=== PATIENT | female | born 1985 | race Caucasian/White ===

== ENCOUNTER → 2022-10-03 08:52 | Outpatient (CLI) | payer OTHER, MEDICAID, SELFPAY ==
--- NOTE | ~2022-10-03 | XR_ITS ---
Clinical Indication: Cough PA and lateral views of the chest: Comparison: 09/21/2022 Findings: The lungs are clear, without evidence of focal consolidation or pleural effusion. Cardiome diastinal silhouette is within normal limits. Bones and soft tissues are unremarkable. Impression: Normal chest. Reviewed, dictated and finalized at location . Impression: Normal chest.
== END ==
PROVIDERS: PCP Nurse Practitioner Family; Visit Provider Nurse Practitioner Family
DX: R05.1 Acute cough (principal)
CPT/HCPCS: 71046

== ENCOUNTER 2023-02-22 08:01 | Emergency (ER) | payer OTHER, SELFPAY ==
--- NOTE | ~2023-02-22 | XR_ITS ---
EXAMINATION: XR chest 2V DATE: 02/22/2023 08:34 INDICATION: Chest congestion TECHNIQUE: PA and lateral views of the chest are obtained. COMPARISON: 10/03/2022 FINDINGS: The lungs are free of acute opacities. No pleural effusion or pneumothorax. The cardiomedia stinal silhouette is normal. There is mild thoracic spondylosis. IMPRESSION: 1. No acute cardiopulmonary abnormality. Reviewed, dictated and finalized at location F. CARRIER
--- NOTE | 2023-02-22 08:13 | ED.URI ---
HPI - URI/Sore Throat General Chief Complaint: Upper Respiratory Infection Stated Complaint: sinus/chest congestion Time Seen by Provider: 02/22/23 08:15 Source: patient Mode of arrival: ambulatory Limitations: no limitations History of Present Illness HPI Narrative: 37-year-old female presented for complaint of cough, chest congestion, wheezing, dizziness, sinus congestion over the past 3 weeks. She states at the onset she had COVID. After she completed Medrol Dosepak she states she felt better for couple of days but symptoms returned. She has been taking antihistamines and using albuterol inhaler more frequently. Denies shortness breath, chest pain, palpitations, nausea vomiting, diarrhea, fevers or chills. (States she received albuterol inhaler 12/2022 for allergy induced asthma). Related Data Home Medications Medication Instructions Recorded Confirmed acyclovir 400 mg tablet 400 mg PO DAILY 02/22/23 02/22/23 albuterol sulfate 90 mcg/actuation 2 puff inhalation Q6-8H PRN sob 02/22/23 02/22/23 aerosol inhaler ergocalciferol (vitamin D2) 1,250 1,250 mcg PO DAILY 02/22/23 02/22/23 mcg (50,000 unit) capsule fexofenadine 60 mg tablet 60 mg PO DAILY 02/22/23 02/22/23 fluoxetine 20 mg capsule 20 mg PO DAILY 02/22/23 02/22/23 omeprazole 20 mg tablet,delayed 20 mg PO DAILY 02/22/23 02/22/23 release phentermine 37.5 mg tablet 37.5 mg PO DAILY 02/22/23 02/22/23 Allergies Allergy/AdvReac Type Severity Reaction Status Date / Time lisinopril Allergy Intermediate Other Verified 02/22/23 08:23 Review of Systems Review of Systems: CONSTITUTIONAL: Denies body aches, fever, chills, or sweats. EYES: Denies visual changes, redness, or discharge. ENT: Reports rhinorrhea, congestion, denies sore throat, or otalgia. CARDIOVASCULAR: Denies chest pain, palpitations, or edema. RESPIRATORY: Reports cough, wheezing. GASTROINTESTINAL: Denies abdominal pain, nausea, vomiting, or diarrhea. GENITOURINARY: Denies dysuria or hematuria. SKIN: Denies rash, itching, or wounds. MUSCULOSKELETAL: Denies back pain, joint pain, or myalgia. NEUROLOGIC: Reports headache, Denies numbness, tingling, or weakness. All systems reviewed & are unremarkable except as noted in HPI and below PMFSH Past Medical History Medical History (Updated 02/22/23 @ 09:01 by Fabby Rod APRN) GERD (gastroesophageal reflux disease) High cholesterol Surgical History Surgical History (Updated 02/22/23 @ 08:27 by Fabby Rod APRN) History of cholecystectomy Comments At time of signature, I have reviewed and agree with nursing past medical, surgical, social and family history unless otherwise noted. Please see nursing chart for further information. There is no relevant family history pertinent to the presenting complaint Exam Narrative: GENERAL: Well-appearing, in no acute distress. EYES: EOMI. No redness or drainage. Conjunctivae normal. ENT: Mucous membranes pink and moist. No rhinorrhea. TMs normal bilaterally. Throat normal. Uvula midline. NECK: Normal AROM. Supple. CHEST: No respiratory distress. Faint Wheezing to left [place] and right lower lobe HEART: Regular rate and rhythm. No murmur appreciated. ABDOMEN: Soft, nontender, nondistended, normal active bowel sounds. EXTREMITIES: Normal range of motion. No edema. SKIN: Warm, dry, no rash. Capillary refill normal. Normal skin turgor. NEURO: Alert and oriented x3. Gait steady. PSYCH: Normal affect. Course Course Emergency Course: Patient is aware of diagnosis, understands and agrees to treatment plan. Anticipatory guidance given. Patient agrees to follow-up as directed and is aware of reasons to seek care at the emergency department. Portions of this record may have been created with voice recognition software Level of Care: Express Care Visit Vital Signs Vital signs: Vital Signs Temperature 97.6 F 02/22/23 08:15 Pulse Rate 76 02/22/23 08:15 Respirator
[2023-02-22 08:15] VITALS: BP 141/89; PULSE 76; RESP 16; TEMP 36.4; O2SAT 98
--- NOTE | 2023-02-22 08:22 | ED.URI ---
HPI - URI/Sore Throat General Chief Complaint: Upper Respiratory Infection Stated Complaint: sinus/chest congestion Time Seen by Provider: 02/22/23 08:15 Related Data Home Medications Medication Instructions Recorded Confirmed acyclovir 400 mg tablet 400 mg PO DAILY 02/22/23 02/22/23 albuterol sulfate 90 mcg/actuation 2 puff inhalation Q6-8H PRN sob 02/22/23 02/22/23 aerosol inhaler ergocalciferol (vitamin D2) 1,250 1,250 mcg PO DAILY 02/22/23 02/22/23 mcg (50,000 unit) capsule fexofenadine 60 mg tablet 60 mg PO DAILY 02/22/23 02/22/23 fluoxetine 20 mg capsule 20 mg PO DAILY 02/22/23 02/22/23 omeprazole 20 mg tablet,delayed 20 mg PO DAILY 02/22/23 02/22/23 release phentermine 37.5 mg tablet 37.5 mg PO DAILY 02/22/23 02/22/23 Allergies Allergy/AdvReac Type Severity Reaction Status Date / Time lisinopril Allergy Intermediate Other Verified 02/22/23 08:23 [facility] Past Medical History Medical History (Updated 02/22/23 @ 09:01 by Fabby Rod APRN) GERD (gastroesophageal reflux disease) High cholesterol Surgical History Surgical History (Updated 02/22/23 @ 08:27 by Fabby Rod APRN) History of cholecystectomy Course Vital Signs Vital signs: Vital Signs Temperature 36.4 C 02/22/23 08:15 Pulse Rate 76 02/22/23 08:15 Respiratory Rate 16 02/22/23 08:15 Blood Pressure 141/89 H 02/22/23 08:15 Pulse Oximetry 98 02/22/23 08:15 Oxygen Delivery Room Air 02/22/23 08:15 Temperature 36.4 C 02/22/23 08:15 Pulse Rate 76 02/22/23 08:15 Respiratory Rate 16 02/22/23 08:15 Blood Pressure 141/89 H 02/22/23 08:15 Pulse Oximetry 98 02/22/23 08:15 Oxygen Delivery Room Air 02/22/23 08:15 Discharge Plan Discharge Clinical Impression: Upper respiratory infection Patient Disposition: Home, Self-Care Condition: Stable Instructions: Antibiotic Form, Upper Respiratory Infection (ED) Additional Instructions: Take medication as directed Recommend Flonase spray and Zyrtec (or Claritin/Jeaneth) over the counter Cough syrup may cause drowsiness; avoid driving or take it at night time. Tylenol 1000mg every 8 hours as needed for pain Symptomatic treatment includes: rest, fluids, and increase humidity of the air at home. Follow up with your primary care provider in 1 week Go to the ER for worsening symptoms or concerns Prescriptions: New benzonatate 200 mg capsule 200 mg PO TID PRN (Reason: cough) Qty: 20 0RF methylprednisolone [Medrol (Felipe)] 4 mg tablets,dose pack See Rx Instructions .ROUTE .COMPLEX Qty: 21 0RF Rx Instructions: orally per package directions amoxicillin-pot clavulanate 875-125 mg tablet 1 tablet PO Q12H 7 Days Qty: 14 0RF fluconazole 150 mg tablet 150 mg PO DAILY Qty: 2 0RF No Action fexofenadine [Jeaneth] 60 mg Tablet 60 mg PO DAILY phentermine 37.5 mg tablet 37.5 mg PO DAILY acyclovir 400 mg tablet 400 mg PO DAILY ergocalciferol (vitamin D2) 1,250 mcg (50,000 unit) capsule 1,250 mcg PO DAILY albuterol sulfate 90 mcg/actuation HFA aerosol inhaler 2 puff INHALATION Q6-8H PRN (Reason: sob) fluoxetine 20 mg capsule 20 mg PO DAILY omeprazole 20 mg Tablet,Delayed Release (Dr/Ec) 20 mg PO DAILY Follow-up/Referrals: Anthony,TYRONE Adame [Primary Care Provider] - Time of Disposition: 09:02
== END 2023-02-22 09:05 | disposition home or self-care (01) ==
PROVIDERS: Emergency Provider Nurse Practitioner Family; PCP Nurse Practitioner Family
DX: J06.9 Acute upper respiratory infection, unspecified (principal); K21.9 Gastro-esophageal reflux disease without esophagitis; E78.00 Pure hypercholesterolemia, unspecified
CPT/HCPCS: 71046; 99213; G0463

== ENCOUNTER 2024-06-19 08:16 | Emergency (ER) | payer OTHER, SELFPAY ==
--- NOTE | ~2024-06-19 | XR_ITS ---
XR chest 2V Ordering provider: LEONEL Doe History: 39 years Female with . cough x5 days, sob . Comparison: February 22, 2023 FINDINGS: MEDIASTINUM: The cardiac silhouette is not enlarged. LUNGS: No effusions or pneumothorax. Opacification the right lower lobe suggestive of early pneumonia . Follow-up advised. 5 mm opacity in the right upper lobe which may be a nodule or summation shadow. Follow-up in 3-6 months advised. OTHER: No free air under the diaphragm. IMPRESSION: Right basilar minimal opacification suggestive of early pneumonia. Follow-up advised. Possible nodule in the right upper lobe. Follow-up in 3-6 months advised Reviewed, dictated and finalized at location A. IMPRESSION: Right basilar minimal opacification suggestive of early pneumonia. Follow-up ad vised. Possible nodule in the right upper lobe. Follow-up in 3-6 months advised
[2024-06-19 08:23] VITALS: BP 151/92; PULSE 75; RESP 20; TEMP 36.1; O2SAT 98
[2024-06-19 08:28] VITALS: PULSE 75; RESP 20; O2SAT 98
--- NOTE | 2024-06-19 08:39 | ED_ITS ---
HPI - URI/Sore Throat General Chief Complaint: Upper Respiratory Infection Stated Complaint: Congestion Time Seen by Provider: 06/19/24 08:34 Source: patient and RN notes reviewed Mode of arrival: ambulatory Limitations: no limitations History of Present Illness HPI Narrative: Patient presents today with a 4 to five-day history of productive cough, chest congestion, occasional shortness of breath. She is also complaining of pain to her soft palate but no sore throat. Denies fever. She has tried Mucinex without much relief. She also has history of asthma for which she takes albuterol and Symbicort. She does report some short-term relief with albuterol use. Related Data Home Medications ?Medication ?Instructions ?Recorded ?Confirmed ?Last Taken ?Type albuterol sulfate 90 mcg/actuation 2 puff inhalation Q6-8H PRN sob 02/22/23 02/22/23 Unknown History aerosol inhaler fexofenadine 60 mg tablet 60 mg PO DAILY 02/22/23 02/22/23 Unknown History omeprazole 20 mg tablet,delayed 20 mg PO DAILY 02/22/23 02/22/23 Unknown History release budesonide-formoterol HFA 160 inhalation 06/19/24 Unknown History mcg-4.5 mcg/actuation aerosol inhaler (Breyna) buspirone 5 mg tablet mg 06/19/24 Unknown History hydrochlorothiazide 12.5 mg tablet mg 06/19/24 Unknown History Allergies Allergy/AdvReac Type Severity Reaction Status Date / Time lisinopril Allergy Intermediate Other Verified 06/19/24 08:23 Review of Systems Review of Systems: CONSTITUTIONAL: Denies body aches, fever, chills, or sweats. EYES: Denies visual changes, redness, or discharge. ENT: Denies rhinorrhea, sore throat, or otalgia.+ congestion, soft palate pain CARDIOVASCULAR: Denies chest pain, palpitations, or edema. RESPIRATORY: + cough, wheezing, shortness of breath GASTROINTESTINAL: Denies abdominal pain, nausea, vomiting, or diarrhea. GENITOURINARY: Denies dysuria or hematuria. SKIN: Denies rash, itching, or wounds. MUSCULOSKELETAL: Denies back pain, joint pain, or myalgia. NEUROLOGIC: Denies headache, numbness, tingling, or weakness. PSYCH: Denies depression or anxiety. [facility] Past Medical History Medical History (Updated 06/19/24 @ 09:13 by Linda Martinez, [facility], ) Asthma High cholesterol GERD (gastroesophageal reflux disease) Surgical History Surgical History History of cholecystectomy Comments At time of signature, I have reviewed and agree with nursing past medical, surgical, social and family history unless otherwise noted. Please see nursing chart for further information. There is no relevant family history pertinent to the presenting complaint Exam Narrative: GENERAL: Mildly ill-appearing, well-nourished, and in no acute distress. HEAD: Normocephalic, atraumatic. EYES: EOMI. No redness or drainage. Conjunctivae normal. ENT: Mucous membranes pink and moist. Nares clear. No rhinorrhea. TMs normal bilaterally. Throat normal. Uvula midline. Tiny papule right soft palate with surrounding erythema NECK: Normal AROM. Supple. No lymphadenopathy. CHEST: No respiratory distress. Slight crackle in the right lower lobe, slight expiratory wheeze in the left lower lobe. HEART: Regular rate and rhythm. No murmur appreciated. EXTREMITIES: Normal range of motion. No edema. SKIN: Warm, dry, no rash. Capillary refill normal. Normal skin turgor. NEURO: No focal deficits. Alert and oriented x3. Gait steady. PSYCH: Normal affect. No signs of depression or anxiety. Course Course Level of Care: Express Care Visit Vital Signs Vital signs: Vital Signs Temperature 96.9 F L 06/19/24 08:23 Pulse Rate 75 06/19/24 08:23 Respiratory Rate 20 06/19/24 08:23 Blood Pressure 151/92 H 06/19/24 08:23 Pulse Oximetry 98 06/19/24 08:23 Oxygen Delivery Room Air 06/19/24 08:23 Temperature 96.9 F L 06/19/24 08:23 Pulse Rate 75 06/19/24 08:28 Respiratory Rate 20 06/19/24 08:28 Blood Pressure 151/92 H 06/19/24 08:23 Pulse Oximetry 98 06/19/24 08:28 Oxygen Delivery Room Air 06/19/24 08:23 Reviewed MDM - URI/Sore Throat MDM Narrative Medical decision making narrative: X-ray shows right basilar pneumonia with possible nodule in the right upper lobe. Will treat pneumonia with Augmentin and azithromycin. Will refill albuterol inhaler. Will also treat asthma symptoms and shortness of breath with some prednisone. Patient is having trouble sleeping due to her excessive coughing so will also prescribe some Cheratussin for this. Anticipatory guidance given. ED precautions given. Patient has been instructed to follow-up with her PCP for follow-up x-ray in 3-6 months regarding the nodule on x-ray. Differential Diagnosis Differential diagnosis: Likely upper respiratory infection, viral infection, bronchitis, pharyngitis and other (Pneumonia, asthma exacerbation) Imaging Data Radiologist's impression: ITS Impressions Chest X-Ray 06/19/24 08:47 IMPRESSION: Right basilar minimal opacification suggestive of early pneumonia. Follow-up advised. Possible nodule in the right upper lobe. Follow-up in 3-6 months advised Critical Care Time Critical Care Time Critical Care Time: No Discharge Plan Discharge Clinical Impression: Pneumonia Qualifiers: Pneumonia type: due to unspecified organism Laterality: right Lung location: lower lobe of lung Qualified Code(s): J18.9 - Pneumonia, unspecified organism Asthma exacerbation Qualifiers: Asthma severity: unspecified severity Asthma persistence: unspecified Qualified Code(s): J45.901 - Unspecified asthma with (acute) exacerbation Patient Disposition: Home, Self-Care Condition: Stable Instructions: Antibiotic Form, Bacterial Pneumonia (DC) Additional Instructions: Your xray shows early pneumonia in the right lower lung area. Please take all medications as prescribed. Do not drive within 6 hours of taking the Chera tussin as it can make you drowsy. As discussed, it also shows an area in the right upper lung that could be a nodule. Radiologist recommends follow-up x-ray in 3-6 months. Please follow-up with your PCP regarding this. Please go to the ER immediately if symptoms worsen to include chest pain, persistent fever greater than 100.3, worsening shortness of breath. Your blood pressure was elevated above 120/80 today at Urgent Care. This puts you above the threshold for follow up. Please schedule a followup visit with your personal physician as soon as possible, for further evaluation and treat ment. Even blood pressure exceeding 120/80 may indicate pre-hypertension. Patient Language: Swazi Prescriptions: New azithromycin 250 mg tablet 250 mg PO DAILY Qty: 6 0RF Rx Instructions: take 500 mg today (day 1), then 250 mg daily on days 2-5. codeine-guaifenesin 10-100 mg/5 mL liquid 5 ml PO Q6H PRN (Reason: cough) Qty: 120 0RF albuterol sulfate 90 mcg/actuation HFA aerosol inhaler 2 inh inhalation Q4-6H PRN (Reason: shortness of breath or wheezing) Qty: 8.5 0RF amoxicillin-pot clavulanate 875-125 mg tablet 1 tablet PO Q12H 5 Days Qty: 10 0RF prednisone 50 mg tablet 50 mg PO DAILY 5 Days Qty: 5 0RF No Action fexofenadine [Jeaneth] 60 mg Tablet 60 mg PO DAILY albuterol sulfate 90 mcg/actuation HFA aerosol inhaler 2 puff INHALATION Q6-8H PRN (Reason: sob) omeprazole 20 mg Tablet,Delayed Release (Dr/Ec) 20 mg PO DAILY hydrochlorothiazide 12.5 mg tablet budesonide-formoterol [Breyna] 160-4.5 mcg/actuation HFA aerosol inhaler INHALATION buspirone 5 mg tablet Follow-up/Referrals: Anthony,TYRONE Adame [Primary Care Provider] - Time of Disposition: 09:15
== END 2024-06-19 09:25 | disposition home or self-care (01) ==
PROVIDERS: Emergency Provider Nurse Practitioner; PCP Nurse Practitioner Family
DX: J18.9 Pneumonia, unspecified organism (principal); J45.901 Unspecified asthma with (acute) exacerbation; E78.00 Pure hypercholesterolemia, unspecified; K21.9 Gastro-esophageal reflux disease without esophagitis
CPT/HCPCS: 71046; 99213; G0463

== ENCOUNTER → 2024-06-26 08:17 | Outpatient (CLI) | payer OTHER, SELFPAY ==
--- NOTE | ~2024-06-26 | XR_ITS ---
EXAMINATION: XR chest 2V 06/26/2024 08:32 INDICATION: Ongoing symptoms for pneumonia PROCEDURE: 2 view chest COMPARISON: Comparison to multiple prior studies sequentially, with oldest reviewed study dated 09/21. FINDINGS: The lungs are clear. The cardiomediastinal silhouette is within normal limits. There are no pleural effusions. There is no pneumothorax suspected. IMPRESSION: 1: NO ACUTE CARDIOPULMONARY DISEASE. Reviewed, dictated and finalized at location A.
== END ==
PROVIDERS: PCP Nurse Practitioner Family; Visit Provider Nurse Practitioner Family
DX: J18.9 Pneumonia, unspecified organism (principal)
CPT/HCPCS: 71046

== ENCOUNTER 2025-03-05 13:11 | Emergency (ER) | payer OTHER, BC, SELFPAY ==
[2025-03-05 13:25] VITALS: BP 148/79; PULSE 77; RESP 18; TEMP 36.1; O2SAT 99
--- NOTE | 2025-03-05 13:29 | ED.URI ---
HPI - URI/Sore Throat General Chief Complaint: Upper Respiratory Infection Stated Complaint: flu symptoms Time Seen by Provider: 03/05/25 13:29 Source: patient Mode of arrival: ambulatory Limitations: no limitations History of Present Illness HPI Narrative: 39 yo F presents with cough for 8 days. hx of pneumonia. States feels like when at had pneumonia in june. Taking prescribed Robitussin with codeine. No CP or SOB. All systems reviewed and negative except as noted above. Related Data Home Medications ?Medication ?Instructions ?Recorded ?Confirmed ?Last Taken ?Type albuterol sulfate 90 mcg/actuation 2 puff inhalation Q6-8H PRN sob 02/22/23 02/22/23 Unknown History aerosol inhaler fexofenadine 60 mg tablet 60 mg PO DAILY 02/22/23 02/22/23 Unknown History omeprazole 20 mg tablet,delayed 20 mg PO DAILY 02/22/23 02/22/23 Unknown History release budesonide-formoterol HFA 160 inhalation 06/19/24 Unknown History mcg-4.5 mcg/actuation aerosol inhaler (Breyna) buspirone 5 mg tablet mg 06/19/24 Unknown History hydrochlorothiazide 12.5 mg tablet mg 06/19/24 Unknown History Allergies Allergy/AdvReac Type Severity Reaction Status Date / Time lisinopril Allergy Intermediate Other Verified 03/05/25 13:14 [facility] Past Medical History Medical History (Updated 03/05/25 @ 13:40 by Zoila Arnold, [facility]) Asthma High cholesterol GERD (gastroesophageal reflux disease) Surgical History Surgical History (System 09/04/24 @ 09:00 by Princess Jolly) History of cholecystectomy Comments At time of signature, agree with nursing past medical, surgical, social and family history. There is no relevant family history pertinent to the presenting complaint. Exam Narrative: GENERAL: This is a well-nourished, well-developed patient, ill-appearing but in no acute distress HEAD: normocephalic, atraumatic. EYES: PERRL. Sclera clear/white. Vision is grossly intact. EARS: External ears normal, auditory canals clear and without drainage, TMs normal without perforation. Hearing grossly intact. NOSE: External nose normal with no obvious nasal discharge, nares without redness, no rhinorrhea. THROAT: Mucous membranes moist, posterior pharynx clear. NECK: Neck supple, non-tender without lymphadenopathy, masses or thyromegaly. CARDIOVASCULAR: Regular rate and rhythm without murmurs, gallops, or rubs. RESPIRATORY: Decreased to left lower lung [place] rio on auscultation otherwise clear. Breath sounds equal bilaterally. No wheezes, rales, or rhonchi. SKIN: warm, Dry, intact with no suspicious lesions or rash, good texture and turgor. NEURO: awake, alert, and oriented to person, place and time. There were no obvious focal neurologic abnormalities. EXTREMITIES: No joint tenderness, effusion, or edema noted. Course Course Level of Care: Express Care Visit Vital Signs Vital signs: Vital Signs Temperature 36.1 C L 03/05/25 13:25 Pulse Rate 77 03/05/25 13:25 Respiratory Rate 18 03/05/25 13:25 Blood Pressure 148/79 H 03/05/25 13:25 Pulse Oximetry 99 03/05/25 13:25 Oxygen Delivery Room Air 03/05/25 13:25 Temperature 36.1 C L 03/05/25 13:25 Pulse Rate 77 03/05/25 13:25 Respiratory Rate 18 03/05/25 13:25 Blood Pressure 148/79 H 03/05/25 13:25 Pulse Oximetry 99 03/05/25 13:25 Oxygen Delivery Room Air 03/05/25 13:25 Reviewed MDM MDM Narrative Medical decision making narrative: Patient alert, nontoxic. Reports history of pneumonia multiple times in the past. Patient decreased on auscultation to left lower lung field. A chest x-ray was offered but patient declined. Will treat with antibiotic as precaution. No respiratory distress noted. Differential Diagnosis Differential Diagnosis: ? Differential diagnostic considerations for upper respiratory infection include upper respiratory infection, croup, otitis media, sinusitis, viral infection, bronchitis, influenza, pharyngitis, strep, uvulitis.? Discharge Plan Discharge Clinical Impression: Acute bronchitis Patient Disposition: Home Condition: Stable Instructions: Antibiotic Form, Acute Bronchitis (ED) Additional Instructions: Take medications as prescribed. Taking [id number] medication to treat her symptoms such as Mucinex DM. Take as directed on packaging. Drink at least 64 oz of water a day. Place cool mist humidifier in bedroom where you sleep. Follow-up with your primary care physician if symptoms are not improving. Patient Language: Bengali Prescriptions: New doxycycline hyclate 100 mg capsule 100 mg PO BID 7 Days Qty: 14 0RF methylprednisolone [Medrol (Felipe)] 4 mg tablets,dose pack See Rx Instructions PO .COMPLEX Qty: 21 0RF Rx Instructions: orally per package directions No Action fexofenadine [Jeaneth] 60 mg Tablet 60 mg PO DAILY albuterol sulfate 90 mcg/actuation HFA aerosol inhaler 2 puff INHALATION Q6-8H PRN (Reason: sob) omeprazole 20 mg Tablet,Delayed Release (Dr/Ec) 20 mg PO DAILY hydrochlorothiazide 12.5 mg tablet budesonide-formoterol [Breyna] 160-4.5 mcg/actuation HFA aerosol inhaler INHALATION buspirone 5 mg tablet albuterol sulfate 90 mcg/actuation HFA aerosol inhaler 2 inh inhalation Q4-6H PRN (Reason: shortness of breath or wheezing) Qty: 8.5 0RF Follow-up/Referrals: Anthony,TYRONE Adame [Primary Care Provider, Unknown] Stand Alone Forms: Work/School Release IP Time of Disposition: 13:41
[2025-03-05 13:43] LABS: EDCOVIDSCREEN Negative (Negative); EDINFLUASCREEN Negative (Negative); EDINFLUBSCREEN Negative (Negative)
== END 2025-03-05 13:45 | disposition home or self-care (01) ==
PROVIDERS: Emergency Provider Nurse Practitioner Family; PCP Nurse Practitioner Family
DX: J20.9 Acute bronchitis, unspecified (principal); Z20.822 Contact with and (suspected) exposure to COVID-19; E78.00 Pure hypercholesterolemia, unspecified; J45.909 Unspecified asthma, uncomplicated; K21.9 Gastro-esophageal reflux disease without esophagitis
CPT/HCPCS: 87426; 87804; 99213; G0463